=== PATIENT | male | born 1950 | race Caucasian/White ===

== ENCOUNTER → 2017-03-06 | Outpatient (CLI) | payer BC ==
[~2017-03-06] MED LIST: ALENDRONATE SOD35 MG PO; ASA325 MG PO; ATORVASTATIN CA40 MG PO; BUPROPION HCL150 M1 PO; CALCIUM 600 +1 EA16 PO; CENTRUM COMPLE1 EACH PO; COZAAR100 MG PO; DESYREL DPS100 MG PO; EFFEXOR XR75 MG PO; HYDROCHLOROTHIA25 MG PO; MINIPRESS DPS2 MG PO; MIRALAX PACKET17 GM PO; NEURONTIN DPS300 MG PO; NORVASC DPS10 MG PO; OLANZAPINE10 MG PO; RABEPRAZOLE SOD20 MG PO; SENOKOT S1 TAB PO; TYLENOL DPS325 MG PO; ULTRAM DPS50 MG PO; VITAMIN D3400 UNI1 PO
== END | disposition home or self-care (01) ==
LOC: PTH.S 09:06
DX: Z01.818 Encounter for other preprocedural examination (principal)

== ENCOUNTER 2017-03-18 07:14 | Inpatient (IN) | payer BC ==
[2017-03-21] MEDS ORDERED: NORVASC DPS10 MG PO (13:15)
[2017-03-21] MEDS ORDERED: COZAAR100 MG PO (13:15)
[2017-03-21] MEDS ORDERED: HYDROCHLOROTHIA25 MG PO (13:15)
[2017-03-21] MEDS ORDERED: RABEPRAZOLE SOD20 MG PO (13:15)
[2017-03-21] MEDS ORDERED: MINIPRESS DPS2 MG PO (13:16)
[2017-03-21] MEDS ORDERED: BUPROPION HCL150 M1 PO (13:16)
[2017-03-21] MEDS ORDERED: NEURONTIN DPS300 MG PO ×2 (13:17)
[2017-03-21] MEDS ORDERED: EFFEXOR XR75 MG PO (13:17)
[2017-03-21] MEDS ORDERED: OLANZAPINE10 MG PO (13:18)
[2017-03-21] MEDS ORDERED: ATORVASTATIN CA40 MG PO (13:18)
[2017-03-21] MEDS ORDERED: ALENDRONATE SOD35 MG PO (13:18)
[2017-03-21] MEDS ORDERED: CENTRUM COMPLE1 EACH PO (13:19)
[2017-03-21] MEDS ORDERED: VITAMIN D3400 UNI1 PO (13:19)
[2017-03-21] MEDS ORDERED: DESYREL DPS100 MG PO (13:19)
[2017-03-21] MEDS ORDERED: CALCIUM 600 +1 EA16 PO (13:20)
[2017-03-21] MEDS ORDERED: ASA325 MG PO (13:20)
[2017-03-21] MEDS ORDERED: SENOKOT S1 TAB PO (13:20)
[2017-03-21] MEDS ORDERED: MIRALAX PACKET17 GM PO (13:20)
[2017-03-21] MEDS ORDERED: TYLENOL DPS325 MG PO (13:21)
[2017-03-21] MEDS ORDERED: ULTRAM DPS50 MG PO (13:21)
== END 2017-03-20 12:54 | disposition home or self-care (01) | DRG 470 ==
DX: M17.12 Unilateral primary osteoarthritis, left knee (principal); J44.9 Chronic obstructive pulmonary disease, unspecified; I10 Essential (primary) hypertension; F43.10 Post-traumatic stress disorder, unspecified; F41.9 Anxiety disorder, unspecified; K21.9 Gastro-esophageal reflux disease without esophagitis; G47.30 Sleep apnea, unspecified; E78.5 Hyperlipidemia, unspecified; M81.0 Age-related osteoporosis without current pathological fracture; E66.9 Obesity, unspecified; Z68.33 Body mass index [BMI] 33.0-33.9, adult; F17.290 Nicotine dependence, other tobacco product, uncomplicated; F32.9 Major depressive disorder, single episode, unspecified; J30.9 Allergic rhinitis, unspecified; M48.00 Spinal stenosis, site unspecified; G47.00 Insomnia, unspecified; Z79.82 Long term (current) use of aspirin